=== PATIENT | female | born 1935 | race Caucasian/White ===

== ENCOUNTER 2016-08-22 14:14 | Emergency (ER) | payer MEDICARE, SELFPAY ==
[~2016-08-22] VITALS: Ht 154.9 cm; Wt 64.0 kg
[2016-08-22 17:04] LABS: BLOOD UREA NITROGEN 32 mg/dL (7-18)
[2016-08-22 18:44] VITALS: BP 134/74
== END 2016-08-22 18:46 | disposition home or self-care (01) ==
LOC: ED 18:34
DX: N30.91 Cystitis, unspecified with hematuria (principal); R31.0 Gross hematuria; N32.9 Bladder disorder, unspecified; E11.65 Type 2 diabetes mellitus with hyperglycemia; Z90.49 Acquired absence of other specified parts of digestive tract; Z87.442 Personal history of urinary calculi
CPT/HCPCS: 36415; 76770; 80048; 81001; 82040; 85025; 85610; 85730; 87086

== ENCOUNTER 2016-09-11 10:54 | Observation (INO) | payer MEDICARE ==
[~2016-09-11] VITALS: Ht 157.5 cm; Wt 63.0 kg
[2016-09-11] MEDS ORDERED: LACTATED RINGERS 1,000 ML IV SCH (11:53)
[2016-09-11] MEDS ORDERED: METF10002 PO (12:21)
[2016-09-11] MEDS ORDERED: GARL5000 PO (12:21)
[2016-09-11] MEDS ORDERED: CHRO1TAB6 PO (12:21)
[2016-09-11] MEDS ORDERED: LACT1CAP35 PO (12:21)
[2016-09-11 12:22] VITALS: BP 128/77
[2016-09-11] MEDS ORDERED: LYSI500T PO (12:22)
[2016-09-11 12:36] LABS: ASPARTATE AMINO TRANSFERASE 10 U/L (15-37); BLOOD UREA NITROGEN 31 mg/dL (7-18)
[2016-09-11] MEDS ORDERED: GLIP5TAB10 PO (12:54)
[2016-09-11] MEDS ORDERED: MIDAZOLAM 1 MG/ML, 2ML ONE (13:18)
[2016-09-11] MEDS ORDERED: FENTANYL PF 250 MCG/5ML ONE ×2 (13:18→15:15)
[2016-09-11] MEDS ORDERED: ONDANSETRON 2MG/ML, 2ML ONE (13:50)
[2016-09-11] MEDS ORDERED: DEXAMETHASONE 4 MG/ML, 1ML ONE (13:50)
[2016-09-11] MEDS ORDERED: ROCURONIUM 10 MG/ML ONE (13:50)
[2016-09-11] MEDS ORDERED: PHENYLEPHRINE 10 MG/ML ONE (13:50)
[2016-09-11] MEDS ORDERED: PROPOFOL 10 MG/ML, 20ML ONE (13:50)
[2016-09-11] MEDS ORDERED: CEFAZOLIN 1,000 MG ONE (13:50)
[2016-09-11] MEDS ORDERED: SUCCINYLCHOLINE 20 MG/ML, 10ML ONE (13:50)
[2016-09-11] MEDS ORDERED: MITOMYCIN 40 MG, WATER FOR INJECTION,STERILE 40 ML in SYRINGE 1 EA INTVESIC ONE (14:00)
[2016-09-11] MEDS ORDERED: PROMETHAZINE 25 MG/ML, 1ML IV PRN (14:30)
[2016-09-11] MEDS ORDERED: FENTANYL PF 100 MCG/2ML IV PRN (14:30)
[2016-09-11] MEDS ORDERED: ONDANSETRON 2MG/ML, 2ML IVPush PRN ×2 (14:30→16:30)
[2016-09-11] MEDS ORDERED: hydrALAzine 20 MG/ML, 1ML IV PRN (14:30)
[2016-09-11] MEDS ORDERED: EPHEDRINE 50 MG/ML, 1ML IVPush PRN (14:30)
[2016-09-11] MEDS ORDERED: HYDROcodone/APAP 7.5-325MG/15ML UDC PO PRN (14:30)
[2016-09-11] MEDS ORDERED: OXYcodone 5 MG/5 ML ORAL.SOL UDC PO PRN (14:30)
[2016-09-11] MEDS ORDERED: HYDROmorphone 1 MG/ML, 1ML IV PRN ×2 (14:30→16:30)
[2016-09-11] MEDS ORDERED: MITOMYCIN 40 MG IVPB ONE (14:55)
[2016-09-11] MEDS ORDERED: POTASSIUM CHLORIDE 20 MEQ in D5%-0.9% NACL 1,000 ML IV SCH (16:30)
[2016-09-11] MEDS ORDERED: OXYcodone/APAP 5/325MG TABLET PO PRN (16:30)
[2016-09-11] MEDS ORDERED: OPIUM/BELLADONNA SUPP.RECT 16.2-30 MG PR PRN (16:30)
[2016-09-11] MEDS ORDERED: FENTANYL PF 100 MCG/2ML ONE (16:49)
[2016-09-11] MEDS: LABETALOL 5MG/ML, 20ML IV PRN ×2 (16:55→17:04)
[2016-09-11] MEDS ORDERED: OPIUM/BELLADONNA SUPP.RECT 16.2-30 MG ONE (17:32)
[2016-09-11] MEDS ORDERED: hydrALAzine 20 MG/ML, 1ML ONE (18:02)
[2016-09-11] MEDS ORDERED: NS + 20MEQ KCL 1,000 ML IV SCH (20:30)
[2016-09-11 23:29] VITALS: BP 127/54
[2016-09-12] MEDS: CIPROFLOXACIN/PMX 400MG/200ML 200 ML IVPB SCH ×2 (02:42→13:30)
[2016-09-12 03:42] VITALS: BP 129/58
[2016-09-12 06:45] LABS: BLOOD UREA NITROGEN 24 mg/dL (7-18)
[2016-09-12 07:27] VITALS: BP 131/91
[2016-09-12] MEDS ORDERED: metFORMIN XR 500 MG TAB.ER.24H PO SCH (08:00)
[2016-09-12] MEDS ORDERED: LYSINE 500 MG HOMEMEDPO SCH (09:00)
[2016-09-12] MEDS ORDERED: LACTOBACILLUS CHEW TABLET PO SCH (09:00)
[2016-09-12] MEDS ORDERED: ACETAMINOPHEN 325 MG TABLET PO ONE (13:30)
[2016-09-12] MEDS ORDERED: BISACODYL 10 MG SUPP PR ONE (13:30)
[2016-09-12 14:30] VITALS: BP 117/55
[2016-09-12] MEDS ORDERED: OXYC1TAB7 PO (15:19)
[2016-09-12] MEDS ORDERED: CIPR500T87 PO (15:19)
[2016-09-12] MEDS ORDERED: OXYB5TAB7 PO (15:20)
[2016-09-12] MEDS ORDERED: PHEN-418 PO (15:20)
[2016-09-12] MEDS ORDERED: ACET650S21 PO (15:22)
[2016-09-12] MEDS ORDERED: ACET325T14 PO (15:32)
== END 2016-09-12 16:13 | disposition home or self-care (01) ==
LOC: OUT 10:54 → ORIP 16:30 → 4NOR 18:39
PROVIDERS: ADMIT Urology; ATTEND Urology
DX: D49.4 Neoplasm of unspecified behavior of bladder (principal); N39.0 Urinary tract infection, site not specified; Z85.51 Personal history of malignant neoplasm of bladder
CPT/HCPCS: 36415; 52240; 80048; 80053; 81001; 82962; 85018; 87077; 87086; 87186; 88305; 93005; 96365; 96366; C1769; G0378; J0330; J0360; J0690; J0744; J1100; J2250; J2370; J2405; J2704; J3010; J3480; J7120; J9280

== ENCOUNTER → 2016-12-22 | Outpatient (CLI) | payer MEDICARE ==
[~2016-12-22] MED LIST: ACET325T14 PO; ACET650S21 PO; CEFU250T66 PO; CHRO1TAB6 PO; CIPR500T87 PO; GARL5000 PO; GLIP5TAB10 PO; LACT1CAP35 PO; LYSI500T PO; METF10002 PO; OXYB5TAB7 PO; OXYC1TAB7 PO; PHEN-418 PO
[2016-12-22 15:13] LABS: BLOOD UREA NITROGEN 31 mg/dL (7-18)
== END | disposition home or self-care (01) ==
LOC: CFH 14:23
PROVIDERS: ATTEND Urology
DX: N20.0 Calculus of kidney (principal); C67.9 Malignant neoplasm of bladder, unspecified
CPT/HCPCS: 36415; 74000; 80048

== ENCOUNTER 2017-11-19 08:38 | Day surgery (SDC) | payer MEDICARE ==
[~2017-11-19] VITALS: Ht 154.9 cm; Wt 60.9 kg
[2017-11-19 09:53] VITALS: BP 139/63
[2017-11-19] MEDS ORDERED: LACTATED RINGERS 1,000 ML IV SCH (10:07)
[2017-11-19] MEDS ORDERED: ACETAMINOPHEN 500 MG TABLET PO ONE (10:30)
[2017-11-19] MEDS ORDERED: GABAPENTIN 300 MG CAPSULE PO ONE (10:30)
[2017-11-19] MEDS ORDERED: MIDAZOLAM 1 MG/ML, 2ML ONE (10:44)
[2017-11-19] MEDS ORDERED: FENTANYL PF 100 MCG/2ML ONE (10:44)
[2017-11-19] MEDS ORDERED: PROPOFOL 10 MG/ML, 20ML ONE (11:06)
[2017-11-19] MEDS ORDERED: SUCCINYLCHOLINE 20 MG/ML, 10ML ONE (11:06)
[2017-11-19] MEDS ORDERED: GLYCOPYRROLATE 0.2MG/1ML, 5ML ONE (11:06)
[2017-11-19] MEDS ORDERED: ONDANSETRON 2MG/ML, 2ML ONE (11:06)
[2017-11-19] MEDS ORDERED: PHENYLEPHRINE 10 MG/ML ONE (11:06)
[2017-11-19] MEDS ORDERED: ROCURONIUM 10 MG/ML,10ML ONE (11:06)
[2017-11-19] MEDS ORDERED: OMNIPAQUE 350 MG/ML, 50 ML BOTTLE IV ONE (12:03)
[2017-11-19] MEDS ORDERED: OMNIPAQUE 350 MG/ML, 50 ML BOTTLE ONE (12:54)
[2017-11-19] MEDS ORDERED: MEPERIDINE/PF 25MG/0.5ML IVPush PRN (13:00)
[2017-11-19] MEDS ORDERED: LABETALOL 5MG/ML, 20ML IV PRN (13:00)
[2017-11-19] MEDS ORDERED: FENTANYL PF 100 MCG/2ML IV PRN (13:00)
[2017-11-19] MEDS ORDERED: METOCLOPRAMIDE 5 MG/ML, 2ML IV PRN (13:00)
[2017-11-19] MEDS ORDERED: PROMETHAZINE 25 MG/ML, 1ML IV PRN (13:00)
[2017-11-19] MEDS ORDERED: ALBUTEROL SULFATE 2.5 MG/3 ML NPPB PRN (13:00)
[2017-11-19] MEDS ORDERED: OXYcodone/APAP 5/325MG TABLET PO PRN (13:00)
[2017-11-19] MEDS ORDERED: ONDANSETRON 2MG/ML, 2ML IVPush PRN (13:00)
[2017-11-19] MEDS ORDERED: hydrALAzine 20 MG/ML, 1ML IV PRN (13:00)
[2017-11-19] MEDS ORDERED: HYDROmorphone 1 MG/ML, 1ML IV PRN (13:00)
[2017-11-19] MEDS ORDERED: KETOROLAC 30 MG/1 ML IV PRN (13:00)
[2017-11-19] MEDS ORDERED: OXYcodone 5 MG/5 ML ORAL.SOL UDC PO PRN (13:00)
== END 2017-11-19 18:35 | disposition home or self-care (01) ==
LOC: OR 08:38
PROVIDERS: ATTEND Urology
DX: N20.1 Calculus of ureter (principal); Z85.51 Personal history of malignant neoplasm of bladder
CPT/HCPCS: 52356; 74420; 82360; 82962; 88300; 88305; C1758; C1769; C2617; J0330; J2250; J2370; J2405; J2704; J3010; J3490; J7120; Q9967

== ENCOUNTER → 2019-03-18 | Outpatient (CLI) | payer MEDICARE ==
[~2019-03-18] MED LIST changes: -LYSI500T PO; +LYSI500T8 PO; +OXYB5TAB10 PO; -OXYB5TAB7 PO; +REGADENOSON 0.4 MG/5 ML SYRINGE ONE
== END | disposition home or self-care (01) ==
LOC: CFH 09:30
PROVIDERS: ATTEND Internal Medicine Cardiovascular Disease
DX: I08.8 Other rheumatic multiple valve diseases (principal); I10 Essential (primary) hypertension; E11.9 Type 2 diabetes mellitus without complications; Z85.51 Personal history of malignant neoplasm of bladder
CPT/HCPCS: 78452; 93017; 93308; 93321; 93325; A9502; J2785

== ENCOUNTER 2019-07-08 07:06 | Inpatient (IN) | payer MEDICARE ==
[~2019-07-08] VITALS: Ht 154.9 cm; Wt 65.3 kg
[~2019-07-08 07:06] MED LIST changes: +ASPI-515 PO/NG; +ATOR40TA78 PO; +CEFD300C37 PO; +CLOP75TA PO; +LISI-170 PO; -REGADENOSON 0.4 MG/5 ML SYRINGE ONE
--- NOTE | 2019-07-08 08:56 | NUR ---
MANAGER ACCOUNT MANAGEMENT: PT AMBULATORY TO ROOM FROM LOBBY
--- NOTE | 2019-07-08 09:24 | NUR ---
PT PRESENTS TO ED WITH C/O RIGHT SIDED FACIAL SWELLING AND PAIN STARTING YESTERDAY, OBVIOUS SWELLING NOTED TO RIGHT JAW. PT ATTACHED TO ALL MONITORS, EDMD MELONY AT BEDSIDE FOR INITIAL ASSESSMENT. PER EDMD, POC IS IV ABX AND MAX/FAC CONSULT. PER MD, NO UA INDICATED, AND NO BLOOD CX INDICATED. PT A&O, RESPS EVEN AND UNLABORED, NADN. SON AT BEDSIDE.
[2019-07-08 09:25] LABS: MEAN CORPUSCULAR HEMOGLOBIN 29.7 pg (27.0-34.8); MEAN CORPUSCULAR HGB CONC 32.8 g/dL (32.4-35.8); MEAN CORPUSCULAR VOLUME 90.6 fL (80-100); MEAN PLATELET VOLUME 11.6 fL (7.4-10.4); PLATELET COUNT 219 x10^3/uL (130-400); RED CELL DISTRIBUTION WIDTH 14.6 % (9.6-15.2)
--- NOTE | 2019-07-08 09:26 | NUR ---
PT TO CT.
[2019-07-08] MEDS ORDERED: CLINDAMYCIN PMX 600MG/50ML 50 ML IVPB ONE (09:30)
[2019-07-08 09:39] LABS: ALBUMIN 3.9 g/dL (3.4-5.0); ANION GAP 11 mmol/L (5-15); CALCIUM 9.4 mg/dL (8.5-10.1); CHLORIDE 102 mmol/L (98-107); CREATININE 1.42 mg/dL (0.55-1.02)
--- NOTE | 2019-07-08 09:52 | NUR ---
PT BACK FROM CT
[2019-07-08 09:57] LABS: BASOPHILS # (AUTO) 0.02 x10^3/uL (0-0.1); BASOPHILS % (AUTO) 0 % (0-1); EOSINOPHILS # (AUTO) 0.01 x10^3/uL (0-0.4); EOSINOPHILS % (AUTO) 0 % (1-7); LYMPHOCYTES # (AUTO) 0.94 x10^3/uL (1-3.4); LYMPHOCYTES % (AUTO) 5 % (22-44); MD SCAN; MONOCYTES # (AUTO) 0.79 x10^3/uL (0.2-0.8); MONOCYTES % (AUTO) 4 % (2-9); NEUTROPHILS # (AUTO) 17.95 x10^3/uL (1.8-6.8); NEUTROPHILS % (AUTO) 91 % (42-75)
[2019-07-08] MEDS ORDERED: CLINDAMYCIN PMX 600MG/50ML 50 ML ONE (10:05)
--- NOTE | 2019-07-08 10:11 | NUR ---
dr murrieta spoke with dr maguire
[2019-07-08] MEDS ORDERED: SODIUM CHLORIDE 0.9%, 500ML IVBOLUS ONE (10:30)
--- NOTE | 2019-07-08 10:30 | NUR ---
this RN spoke with MD Baumann, notified MD that pt is meeting criteria for sepsis including HR (remains tachycardic) and WBC. verified that no blood cx are indicated for this patient as source is clearly dental abcess. orders received for lactic acid. pt and family aware of POC to admit. pt and son unable to verify home meds, forgot list at home. pt a&o, resps even and unlabored, nadn. sinus tach rate 90-100s with no ectopy on dial maker.
--- NOTE | 2019-07-08 11:00 | NUR ---
report to colton Bloom.
--- NOTE | 2019-07-08 11:45 | NUR ---
THIS RN BACK FROM BREAK, REPORT GIVEN TO CLEMENCIA DAMICO. PT AWAITING TRANSPORT TO MEDICAL FLOOR.
[2019-07-08] MEDS ORDERED: SODIUM CHLORIDE 0.9% 1,000 ML IV SCH (13:00)
[2019-07-08] MEDS ORDERED: hydrALAzine 20 MG/ML, 1ML IVPush PRN (13:30)
[2019-07-08] MEDS ORDERED: ONDANSETRON 2MG/ML, 2ML IVPush PRN (13:30)
[2019-07-08] MEDS ORDERED: PROMETHAZINE 25 MG/ML, 1ML IM PRN (13:30)
[2019-07-08] MEDS ORDERED: LABETALOL 5MG/ML, 20ML IVPush PRN (13:30)
[2019-07-08] MEDS ORDERED: ACETAMINOPHEN 325 MG TABLET PO PRN (13:30)
[2019-07-08 15:05] VITALS: BP 173/83
[2019-07-08] MEDS: CLINDAMYCIN PMX 600MG/50ML 50 ML IV SCH ×2 (15:59→21:32)
[2019-07-08] MEDS: HEPARIN 5,000 UNITS/ML, 1ML SQ SCH ×2 (16:00→21:32)
[2019-07-08] MEDS: HYDROcodone/APAP 5/325 TABLET PO PRN (16:46)
[2019-07-08 19:07] VITALS: BP 151/82
[2019-07-08 19:51] LABS: CULTURE INDICATED? YES; MICROSCOPIC AUTO
[2019-07-08] MEDS: ATORVASTATIN 40 MG TABLET PO SCH (19:53)
[2019-07-08] MEDS: SODIUM CHLORIDE 0.9% 1,000 ML IV SCH (21:33)
[2019-07-09 00:46] VITALS: BP 152/87
[2019-07-09] MEDS: CLINDAMYCIN PMX 600MG/50ML 50 ML IV SCH ×3 (04:12→20:02)
[2019-07-09] MEDS: HEPARIN 5,000 UNITS/ML, 1ML SQ SCH (05:20)
[2019-07-09 07:19] LABS: ALANINE AMINOTRANSFERASE 18 U/L (12-78); ALBUMIN 2.7 g/dL (3.4-5.0); ANION GAP 9 mmol/L (5-15); CALCIUM 8.5 mg/dL (8.5-10.1); CHLORIDE 109 mmol/L (98-107)
[2019-07-09 07:21] LABS: ALKALINE PHOSPHATASE 92 U/L (45-117); BILIRUBIN,TOTAL 1.6 mg/dL (0.2-1.0); TOTAL PROTEIN 6.3 g/dL (6.4-8.2)
[2019-07-09 07:49] LABS: MEAN CORPUSCULAR HEMOGLOBIN 29.7 pg (27.0-34.8); MEAN PLATELET VOLUME 11.3 fL (7.4-10.4); PLATELET COUNT 176 x10^3/uL (130-400); RED BLOOD COUNT 4.31 x10^6/uL (3.82-5.3); RED CELL DISTRIBUTION WIDTH 14.9 % (9.6-15.2)
[2019-07-09 07:55] VITALS: BP 167/70
[2019-07-09 08:24] LABS: BASOPHILS # (AUTO) 0.04 x10^3/uL (0-0.1); BASOPHILS % (AUTO) 0 % (0-1); EOSINOPHILS % (AUTO) 0 % (1-7); LYMPHOCYTES # (AUTO) 0.85 x10^3/uL (1-3.4); LYMPHOCYTES % (AUTO) 6 % (22-44); MD SCAN; MONOCYTES % (AUTO) 6 % (2-9); NEUTROPHILS # (AUTO) 12.49 x10^3/uL (1.8-6.8); NEUTROPHILS % (AUTO) 88 % (42-75)
[2019-07-09] MEDS: SODIUM CHLORIDE 0.9% 1,000 ML IV SCH (08:54)
[2019-07-09] MEDS: LISINOPRIL 20 MG TABLET PO SCH (09:00)
[2019-07-09] MEDS: ASPIRIN 81 MG TABLET EC PO SCH (09:00)
[2019-07-09] MEDS ORDERED: METOPROLOL 1 MG/ML, 5ML ONE (10:31)
[2019-07-09] MEDS ORDERED: ROCURONIUM 10MG/ML,5ML ONE (10:31)
[2019-07-09] MEDS ORDERED: PROPOFOL 10 MG/ML, 20ML ONE (10:31)
[2019-07-09] MEDS ORDERED: SUCCINYLCHOLINE 20 MG/ML, 10ML ONE (10:31)
[2019-07-09] MEDS ORDERED: ONDANSETRON 2MG/ML, 2ML ONE (10:31)
[2019-07-09 14:30] VITALS: BP 141/78
[2019-07-09] MEDS ORDERED: LIDOCAINE 1%-EPI 1:100K, 20ML ONE (15:23)
[2019-07-09] MEDS ORDERED: EPHEDRINE 50 MG/ML, 1ML IVPush PRN (18:00)
[2019-07-09] MEDS ORDERED: OXYcodone 5 MG/5 ML ORAL.SOL UDC PO PRN (18:00)
[2019-07-09] MEDS ORDERED: HYDROmorphone 2 MG/ML, 1ML IVPush PRN (18:00)
[2019-07-09] MEDS ORDERED: ONDANSETRON 2MG/ML, 2ML IV PRN (18:00)
[2019-07-09] MEDS ORDERED: ONDANSETRON ODT 8 MG PO PRN (18:00)
[2019-07-09] MEDS ORDERED: DIAZEPAM 5 MG/ML, 2ML IVPush PRN (18:00)
[2019-07-09] MEDS ORDERED: PROMETHAZINE 25 MG/ML, 1ML IV PRN (18:00)
[2019-07-09] MEDS ORDERED: FENTANYL PF 100 MCG/2ML ONE (18:09)
[2019-07-09] MEDS: FENTANYL PF 100 MCG/2ML IV PRN ×2 (18:10→18:20)
[2019-07-09] MEDS ORDERED: hydrALAzine 20 MG/ML, 1ML ONE (18:22)
[2019-07-09] MEDS ORDERED: DIAZEPAM 5 MG/ML, 2ML ONE (18:39)
[2019-07-09 20:00] VITALS: BP 160/100
[2019-07-09] MEDS: morphine SULFATE 10 MG/ML, 1ML IVPush PRN (20:49)
[2019-07-09] MEDS: ATORVASTATIN 40 MG TABLET PO SCH (21:00)
[2019-07-09 21:50] VITALS: BP 120/69
[2019-07-10 01:27] VITALS: BP 129/73
[2019-07-10] MEDS: CLINDAMYCIN PMX 600MG/50ML 50 ML IV SCH ×4 (02:08→20:31)
[2019-07-10] MEDS: SODIUM CHLORIDE 0.9% 1,000 ML IV SCH ×2 (02:08→20:30)
[2019-07-10 06:17] LABS: ALBUMIN 2.2 g/dL (3.4-5.0); ANION GAP 10 mmol/L (5-15); CHLORIDE 111 mmol/L (98-107)
[2019-07-10 06:21] LABS: ALANINE AMINOTRANSFERASE 17 U/L (12-78); ALKALINE PHOSPHATASE 95 U/L (45-117); CREATININE 1.01 mg/dL (0.55-1.02); TOTAL PROTEIN 5.8 g/dL (6.4-8.2)
[2019-07-10 06:25] LABS: MEAN CORPUSCULAR HEMOGLOBIN 29.8 pg (27.0-34.8); MEAN CORPUSCULAR HGB CONC 33.3 g/dL (32.4-35.8); MEAN CORPUSCULAR VOLUME 89.3 fL (80-100); MEAN PLATELET VOLUME 11.9 fL (7.4-10.4); PLATELET COUNT 174 x10^3/uL (130-400); RED BLOOD COUNT 4.14 x10^6/uL (3.82-5.3); RED CELL DISTRIBUTION WIDTH 15.1 % (9.6-15.2)
[2019-07-10 07:07] LABS: BASOPHILS % (AUTO) 0 % (0-1); EOSINOPHILS # (AUTO) 0.06 x10^3/uL (0-0.4); EOSINOPHILS % (AUTO) 0 % (1-7); LYMPHOCYTES # (AUTO) 0.61 x10^3/uL (1-3.4); LYMPHOCYTES % (AUTO) 3 % (22-44); MD SCAN; MONOCYTES # (AUTO) 1.12 x10^3/uL (0.2-0.8); MONOCYTES % (AUTO) 6 % (2-9); NEUTROPHILS # (AUTO) 17.25 x10^3/uL (1.8-6.8); NEUTROPHILS % (AUTO) 91 % (42-75)
[2019-07-10] MEDS: morphine SULFATE 10 MG/ML, 1ML IVPush PRN (07:54)
[2019-07-10] MEDS: LISINOPRIL 20 MG TABLET PO SCH (07:54)
[2019-07-10] MEDS: ASPIRIN 81 MG TABLET EC PO SCH (07:54)
[2019-07-10] MEDS ORDERED: ERTAPENEM 1 GM in SODIUM CHLORIDE 0.9% 50 ML IV SCH (09:00)
[2019-07-10 09:09] VITALS: BP 102/66
[2019-07-10] MEDS ORDERED: INSULIN GLARGINE 100 UNITS/ML, PEN SQ-INSULIN SCH ×2 (09:30→21:00)
[2019-07-10] MEDS: HYDROcodone/APAP 5/325 TABLET PO PRN (18:17)
[2019-07-10 19:40] VITALS: BP 118/70
[2019-07-10] MEDS: ATORVASTATIN 40 MG TABLET PO SCH (20:31)
[2019-07-11 02:34] VITALS: BP 113/68
[2019-07-11] MEDS: CLINDAMYCIN PMX 600MG/50ML 50 ML IV SCH ×4 (02:34→20:07)
[2019-07-11 05:32] LABS: ALBUMIN 2.1 g/dL (3.4-5.0); ANION GAP 5 mmol/L (5-15); CALCIUM 7.7 mg/dL (8.5-10.1); CHLORIDE 111 mmol/L (98-107)
[2019-07-11 05:37] LABS: ALANINE AMINOTRANSFERASE 21 U/L (12-78); ALKALINE PHOSPHATASE 91 U/L (45-117); BILIRUBIN,TOTAL 0.6 mg/dL (0.2-1.0); CREATININE 1.09 mg/dL (0.55-1.02); TOTAL PROTEIN 5.4 g/dL (6.4-8.2)
[2019-07-11 05:38] LABS: BASOPHILS # (AUTO) 0.03 x10^3/uL (0-0.1); BASOPHILS % (AUTO) 0 % (0-1); EOSINOPHILS # (AUTO) 0.01 x10^3/uL (0-0.4); EOSINOPHILS % (AUTO) 0 % (1-7); LYMPHOCYTES # (AUTO) 0.88 x10^3/uL (1-3.4); LYMPHOCYTES % (AUTO) 8 % (22-44); MD NO; MEAN CORPUSCULAR HEMOGLOBIN 29.8 pg (27.0-34.8); MEAN CORPUSCULAR HGB CONC 33.3 g/dL (32.4-35.8); MEAN CORPUSCULAR VOLUME 89.4 fL (80-100); MEAN PLATELET VOLUME 11.4 fL (7.4-10.4); MONOCYTES # (AUTO) 0.63 x10^3/uL (0.2-0.8); MONOCYTES % (AUTO) 6 % (2-9); NEUTROPHILS # (AUTO) 9.53 x10^3/uL (1.8-6.8); NEUTROPHILS % (AUTO) 86 % (42-75); PLATELET COUNT 151 x10^3/uL (130-400); RED BLOOD COUNT 3.91 x10^6/uL (3.82-5.3); RED CELL DISTRIBUTION WIDTH 15.4 % (9.6-15.2)
[2019-07-11] MEDS: ASPIRIN 81 MG TABLET EC PO SCH (07:49)
[2019-07-11] MEDS: LISINOPRIL 20 MG TABLET PO SCH (07:50)
[2019-07-11] MEDS: INSULIN GLARGINE 100 UNITS/ML, PEN SQ-INSULIN SCH ×2 (08:00→22:02)
[2019-07-11] MEDS ORDERED: CEFTRIAXONE PMX 1GM/50ML 50 ML IV SCH (08:00)
[2019-07-11] MEDS: POTASSIUM CHLORIDE 20 MEQ TAB.ER.PRT PO SCH ×2 (10:09→17:35)
[2019-07-11] MEDS: CLOPIDOGREL 75 MG TABLET PO SCH (10:09)
[2019-07-11 10:20] VITALS: BP 114/64
[2019-07-11] MEDS: SODIUM CHLORIDE 0.9% 1,000 ML IV SCH ×2 (13:40→23:17)
[2019-07-11 13:58] VITALS: BP 124/72
[2019-07-11 20:00] VITALS: BP 136/73
[2019-07-11] MEDS: ATORVASTATIN 40 MG TABLET PO SCH (22:00)
[2019-07-12] MEDS: CLINDAMYCIN PMX 600MG/50ML 50 ML IV SCH ×2 (01:38→07:34)
[2019-07-12 02:05] VITALS: BP 135/57
[2019-07-12 06:45] VITALS: BP 175/64
[2019-07-12 06:53] LABS: ALANINE AMINOTRANSFERASE 22 U/L (12-78); ALBUMIN 2.2 g/dL (3.4-5.0); ANION GAP 6 mmol/L (5-15); CALCIUM 7.7 mg/dL (8.5-10.1); CHLORIDE 116 mmol/L (98-107)
[2019-07-12 06:55] LABS: ALKALINE PHOSPHATASE 98 U/L (45-117); BILIRUBIN,TOTAL 0.6 mg/dL (0.2-1.0); TOTAL PROTEIN 5.7 g/dL (6.4-8.2)
[2019-07-12] MEDS: CLOPIDOGREL 75 MG TABLET PO SCH (07:28)
[2019-07-12] MEDS: POTASSIUM CHLORIDE 20 MEQ TAB.ER.PRT PO SCH (07:28)
[2019-07-12] MEDS: ASPIRIN 81 MG TABLET EC PO SCH (07:28)
[2019-07-12] MEDS: INSULIN GLARGINE 100 UNITS/ML, PEN SQ-INSULIN SCH (07:29)
[2019-07-12] MEDS: LISINOPRIL 20 MG TABLET PO SCH ×2 (07:30→08:48)
[2019-07-12] MEDS ORDERED: SULFAMETH./TRIMETHOPRIM DS 800MG/160MG TABLET PO SCH (09:00)
[2019-07-12 14:24] LABS: MEAN CORPUSCULAR HEMOGLOBIN 29.5 pg (27.0-34.8); MEAN CORPUSCULAR HGB CONC 33.1 g/dL (32.4-35.8); MEAN CORPUSCULAR VOLUME 89.1 fL (80-100); MEAN PLATELET VOLUME 11.4 fL (7.4-10.4); PLATELET COUNT 177 x10^3/uL (130-400); RED BLOOD COUNT 3.73 x10^6/uL (3.82-5.3); RED CELL DISTRIBUTION WIDTH 14.9 % (9.6-15.2)
[2019-07-12 14:44] VITALS: BP 148/67
[2019-07-12] MEDS ORDERED: Sulfameth./Trimethoprim Ds PO (14:45)
[2019-07-12] MEDS ORDERED: CLIN300C8 PO (14:45)
[2019-07-12] MEDS ORDERED: POTA20TA6 PO (14:45)
[2019-07-12 14:49] LABS: BASOPHILS # (AUTO) 0.05 x10^3/uL (0-0.1); BASOPHILS % (AUTO) 1 % (0-1); EOSINOPHILS # (AUTO) 0.07 x10^3/uL (0-0.4); EOSINOPHILS % (AUTO) 1 % (1-7); LYMPHOCYTES # (AUTO) 0.81 x10^3/uL (1-3.4); LYMPHOCYTES % (AUTO) 10 % (22-44); MD SCAN; MONOCYTES # (AUTO) 0.58 x10^3/uL (0.2-0.8); MONOCYTES % (AUTO) 7 % (2-9); NEUTROPHILS # (AUTO) 6.74 x10^3/uL (1.8-6.8); NEUTROPHILS % (AUTO) 82 % (42-75)
[2019-07-12] MEDS ORDERED: LISI-170 PO (14:53)
[2019-07-12] MEDS ORDERED: AMLO-150 PO (14:53)
[2019-07-12] MEDS ORDERED: CLON0.1T22 PO (14:53)
== END 2019-07-12 15:25 | disposition home health service (06) | DRG 853 ==
LOC: ED 10:18 → EDIP 11:00 → 3N 12:19 → DCLOUNGE 07-12 15:14
PROVIDERS: ADMIT Internal Medicine; ATTEND Internal Medicine
PROC: 0J910ZZ Drainage of Face Subcutaneous Tissue and Fascia, Open Approach (ICD-10-PCS; 2019-07-09)
PROC: 0CDWXZ1 Extraction of Upper Tooth, Multiple, External Approach (ICD-10-PCS; 2019-07-09)
PROC: 0CDXXZ0 Extraction of Lower Tooth, Single, External Approach (ICD-10-PCS; principal; 2019-07-09 16:30)
DX: A41.9 Sepsis, unspecified organism (principal); N17.0 Acute kidney failure with tubular necrosis; K12.2 Cellulitis and abscess of mouth; L03.211 Cellulitis of face; N39.0 Urinary tract infection, site not specified; R65.20 Severe sepsis without septic shock; N18.3 Chronic kidney disease, stage 3 (moderate); D75.1 Secondary polycythemia; E11.22 Type 2 diabetes mellitus with diabetic chronic kidney disease; I12.9 Hypertensive chronic kidney disease with stage 1 through stage 4 chronic kidney disease, or unspecified chronic kidney disease; B96.20 Unspecified Escherichia coli [E. coli] as the cause of diseases classified elsewhere; E11.65 Type 2 diabetes mellitus with hyperglycemia; E86.0 Dehydration; K02.9 Dental caries, unspecified; M19.90 Unspecified osteoarthritis, unspecified site; Z85.51 Personal history of malignant neoplasm of bladder; Z86.73 Personal history of transient ischemic attack (TIA), and cerebral infarction without residual deficits
CPT/HCPCS: 36415; 70100; 70486; 71045; 80048; 80053; 81001; 82040; 82962; 83036; 83605; 85025; 87040; 87077; 87086; 87186; 93005; 96365; 99285; G0378; J0696; J1335; J1644; J2405; J2704; J3010; J3360; J3490; J0330; J0360; J1815; J2270; J7030; J7040

== ENCOUNTER → 2019-10-29 | Outpatient (CLI) | payer MEDICARE ==
[~2019-10-29] MED LIST changes: +AMLO-150 PO; +CLIN300C8 PO; +CLON0.1T22 PO; +DOCU-131 PO; +OXYB-39 PO; +OXYC-307 PO; +PENI500T PO; +POTA20TA6 PO; +Sulfameth./Trimethoprim Ds PO
== END | disposition home or self-care (01) ==
LOC: CFH 10:04
PROVIDERS: ATTEND Family Medicine
DX: M81.0 Age-related osteoporosis without current pathological fracture (principal); N95.8 Other specified menopausal and perimenopausal disorders
CPT/HCPCS: 77080